=== PATIENT | female | born 1975 | race Caucasian/White ===

== ENCOUNTER → 2022-05-15 12:45 | Outpatient (BNVA) | payer BC, MEDICAID, SELFPAY | PROVIDERS: PCP Nurse Practitioner Family; Visit Provider Internal Medicine Rheumatology | DX: M47.898 Other spondylosis, sacral and sacrococcygeal region (principal); M47.896 Other spondylosis, lumbar region; M19.90 Unspecified osteoarthritis, unspecified site; R76.8 Other specified abnormal immunological findings in serum; D49.7 Neoplasm of unspecified behavior of endocrine glands and other parts of nervous system; E27.1 Primary adrenocortical insufficiency; Z11.59 Encounter for screening for other viral diseases; M45.6 Ankylosing spondylitis lumbar region; Z79.899 Other long term (current) drug therapy | CPT/HCPCS: 36415; 72100; 72202; 73630; 80076; 82306; 82565; 85025; 85651; 86140; 86200; 86431; 86480; 86704; 86803; 86812; 87340 ==

== ENCOUNTER → 2022-10-14 13:51 | Outpatient (BNVA) | payer BC, MEDICAID, SELFPAY | PROVIDERS: PCP Nurse Practitioner Family; Visit Provider Internal Medicine Rheumatology | DX: M19.90 Unspecified osteoarthritis, unspecified site (principal); M47.819 Spondylosis without myelopathy or radiculopathy, site unspecified; R76.8 Other specified abnormal immunological findings in serum; L40.0 Psoriasis vulgaris | CPT/HCPCS: 36415; 80076; 82565; 85025; 86140 ==